=== PATIENT | female | born 1965 | race Caucasian/White ===

== ENCOUNTER 2023-06-18 13:42 | Emergency (ER) | payer MEDICARE, MEDICAID, SELFPAY ==
[2023-06-18 14:04] VITALS: BP 133/55; PULSE 114; RESP 24; TEMP 36.8; O2SAT 98; BMI 35.2
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
[2023-06-18] MEDS: HYDROcodone-acetaminophen 5-325 mg Tablet 1 TAB PO (14:14)
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
== END 2023-06-18 16:08 | disposition home or self-care (01) ==
PROVIDERS: Emergency Provider Emergency Medicine
DX: S62.102A Fracture of unspecified carpal bone, left wrist, initial encounter for closed fracture (principal); Y04.2XXA Assault by strike against or bumped into by another person, initial encounter
CPT/HCPCS: 29125; 73110; 73130; 99283